=== PATIENT | female | born 1980 | race American Indian/Alaskan Native ===

== ENCOUNTER 2017-02-07 17:11 | Observation (INO) | payer OTHER ==
[2017-02-07 17:11] VITALS: BMI 30.4
[2017-02-07 17:27] VITALS: BP 120/68; PULSE 62; RESP 16; TEMP 98.2; O2SAT 98
[2017-02-07] MEDS ORDERED: Lactated Ringer's 1,000 ML IV STA (18:14)
[2017-02-07 18:52] LABS: BASO # 0.1 K/uL (0.0-0.2); BASO % 0.5 % (0.0-2.0); EOS # 0.3 K/uL (0.0-0.7); EOS % 2.5 % (0.0-4.0); HEMATOCRIT 41.8 % (34.0-47.0); LYMPH # 2.1 K/uL (1.0-4.3); LYMPH % 17.3 % (20.0-40.0); MEAN CELL VOLUME 91.2 fl (81.0-99.0); MEAN CORPUSCULAR HEMOGLOBIN 29.6 pg (27.0-31.0); MEAN CORPUSCULAR HGB CONC 32.4 g/dL (33.0-37.0); MEAN PLATELET VOLUME 9.9 fl (7.2-11.7); MONO # 0.6 K/uL (0.0-0.8); MONO % 4.8 % (0.0-10.0); NEUT % 74.9 % (50.0-75.0); NRBC % 0.1 % (0.0-0.0); RED CELL DISTRIBUTION WIDTH 13.1 % (11.5-14.5); WHITE BLOOD COUNT 12.1 K/uL (4.8-10.8)
[2017-02-07 19:04] LABS: ALB/GLOB RATIO 1.1 (1.0-2.1); ALKALINE PHOSPHATASE 78 U/L (38-126); ALT/SGPT 28 U/L (9-52); AST/SGOT 27 U/L (14-36); BLOOD UREA NITROGEN 11 mg/dl (7-17); CALCIUM 9.8 mg/dL (8.4-10.2); CARBON DIOXIDE 26 mmol/L (22-30); CHLORIDE 103 mmol/L (98-107); GFR AFRICAN-AMERICAN > 60; GLUCOSE,RANDOM 94 mg/dL (65-105); LIPASE 130 U/L (23-300); PHOSPHOROUS 3.8 mg/dl (2.5-4.5); POTASSIUM 4.2 MMOL/L (3.6-5.0); SODIUM 142 mmol/l (132-148); TOTAL PROTEIN 8.8 G/DL (6.3-8.2)
--- NOTE | 2017-02-07 19:22 | ED PDOC ---
HPI: Abdomen Time Seen by Provider: 02/07/17 17:35 Chief Complaint (Nursing): Abdominal Pain Chief Complaint (Provider): Abdominal Pain History Per: Patient History/Exam Limitations: no limitations Onset/Duration Of Symptoms: Days (x2) Current Symptoms Are (Timing): Still Present Quality Of Discomfort: Cramping Associated Symptoms: Chills, Vomiting, Loss Of Appetite. denies: Urinary Symptoms Additional Complaint(s): 17:35 Celina Gutierrez is a 36 year old female that presents to the ED with a chief complaint of diffuse epigastric, cramping pain and vomiting that patient states began two days ago, on Tuesday, at 2 AM in the morning. Her associated symptoms include two episodes of nonbilious, nonbloody vomiting, decreased appetite, chills, and decreased PO intake. Patient denies experiencing any diarrhea, fever, or urinary symptoms. Patient believes that her symptoms began on Tuesday night after she "ate a bad egg." She also reports that yesterday, her symptoms resolved on their own and she ate normally, but that as of today all of her symptoms returned. Patient has yet to take any medication for her pain. PMD: Halley [place] Past Medical History Reviewed: Historical Data, Nursing Documentation, Vital Signs Vital Signs: Last Vital Signs Temp 98.2 F 02/07/17 17:25 Pulse 62 02/07/17 17:25 Resp 16 02/07/17 17:25 BP 120/68 02/07/17 17:25 Pulse Ox 98 02/07/17 22:30 - Medical History PMH: No Chronic Diseases - Surgical History Surgical History: No Surg Hx - Family History Family History: States: Unknown Family Hx - Social History Current smoker - smoking cessation education provided: No - Home Medications Home Medications: Ambulatory Orders Medication Instructions Recorded Atropine/Diphenoxylate [Lonox 2 tab PO QID PRN #30 tab 02/07/17 0.025 MG-2.5 MG] Ciprofloxacin [Cipro] 1 tab PO BID #14 tab 02/07/17 Saccharomyces Boulardi [Florastor] 500 mg PO BID #28 cap 02/07/17 - Allergies Allergies/Adverse Reactions: Allergies Allergy/AdvReac Type Severity Reaction Status Date / Time No Known Allergies Allergy Verified 02/07/17 17:25 Review of Systems Constitutional: Positive for: Chills, Other (decreased appetite, decreased PO intake). Negative for: Fever Gastrointestinal: Positive for: Vomiting (x2 episodes on nonbilious nonbloody), Abdominal Pain (epigastric). Negative for: Diarrhea Genitourinary Female: Negative for: Dysuria, Frequency, Incontinence, Hematuria Physical Exam - Reviewed Nursing Documentation Reviewed: Yes Vital Signs Reviewed: Yes - Physical Exam Appears: Positive for: Non-toxic, In Acute Distress (in moderate painful distress) Head Exam: Positive for: ATRAUMATIC, NORMOCEPHALIC Skin: Positive for: Normal Color, Warm, Dry ENT: Positive for: Pharynx Is (clear), Other (tacky mucous membranes) Cardiovascular/Chest: Positive for: Regular Rate, Rhythm. Negative for: Murmur Respiratory: Positive for: Normal Breath Sounds. Negative for: Wheezing Gastrointestinal/Abdominal: Positive for: Soft, Tenderness (diffusely tender, especially in epigastric area). Negative for: Mass, Guarding, Rebound, Other ( negative Clarke's and McBurney's point tenderness) Neurologic/Psych: Positive for: Alert, Oriented - Laboratory Results Result Diagrams: 02/07/17 18:45 02/07/17 18:45 - ECG O2 Sat by Pulse Oximetry: 98 (RA) Pulse Ox Interpretation: Normal Medical Decision Making Medical Decision Makin:53 Initial Impression: Abdominal Pain and Vomiting, ddx include: Pancreatitis vs. Obstruction vs. Gastroenteritis vs. Gastritis Initial Plan: * CT A/P with IV contrast * PTT * PT * Urine dip * Urine preg * Pepcid 40 mg IV * Lactated Ringer's 1000 mL IV at 1000 mLs/hr * Morphine 2 mg IV * Zofran 8 mg IV 18:36 Patient is to be placed in ED Obs secondary to extensive ED workup. Labs demonstrate mild leukocytosis. No emergent lab abnormalities. EXAM: CT Abdomen and Pelvis With Intravenous Contrast CLINICAL HISTORY: 36 years old, female; Pain; Abdominal pain; Generalized; Prior surgery; Surgery date: 6+ months; Surgery type: Ectopic preg. 2007. Hernia surgery as a baby; Additional info: Abd pain vomiting TECHNIQUE: Axial computed tomography images of the abdomen and pelvis with intravenous contrast. This CT exam was performed using one or more of the following dose reduction techniques: automated exposure control, adjustment of the mA and/or kV according to patient size, and/or use of iterative reconstruction technique. Coronal and sagittal reformatted images were created and reviewed. CONTRAST: 95 mL of [id number] administered intravenously. COMPARISON: No relevant prior studies available. FINDINGS: Lower thorax: No acute findings. ABDOMEN: Liver: Hepatomegaly. Tiny low-attenuation focus in the dome of the right hepatic lobe, too small to characterize. Gallbladder and bile ducts: Unremarkable. No calcified stones. No ductal dilation. Pancreas: Unremarkable. No mass. No ductal dilation. Spleen: Unremarkable. No splenomegaly. Adrenals: Unremarkable. No mass. Kidneys and ureters: Unremarkable. No solid mass. No hydronephrosis. Stomach and bowel: Unremarkable. No obstruction. No mucosal thickening. Appendix: Normal appendix. PELVIS: Bladder: Unremarkable. No mass. Reproductive: 2.3 cm right ovarian follicle. Probable small fibroids in the posterior uterus. Nabothian cyst in the cervix. ABDOMEN and PELVIS: Intraperitoneal space: Small amount of free fluid in the right lower quadrant which is likely physiologic. No free air. Bones/joints: No acute fracture. No dislocation. Soft tissues: Small low hernia containing fat. Vasculature: Unremarkable. No abdominal aortic aneurysm. Lymph nodes: Unremarkable. No enlarged lymph nodes. IMPRESSION: No acute findings. Thank you for allowing us to participate in the care of your patient. Dictated and Authenticated by: Kurt Venegas MD 02/07/2017 8:56 PM Eastern Time ([place] & [place]) 9p Pt feels better. Stable for dc. DW pt findings and plan of care. Rx for infectious diarrhea and advised f/u pmd/gi. Scribe Attestation: Documented by Leandra Hernandez, acting as a scribe for Kita Alexandra MD.. Provider Scribe Attestation: All medical record entries made by the Scribe were at my direction and personally dictated by me. I have reviewed the chart and agree that the record accurately reflects my personal performance of the history, physical exam, medical decision making, and the department course for this patient. I have also personally directed, reviewed, and agree with the discharge instructions and disposition. ED OBSERVATION Date of observation admission: 02/07/17 Time of observation admission: 18:36 - Observation admission statement Patient is being placed in observation because:: 18:36 Patient is to be placed in ED Obs secondary to extensive ED workup. Disposition - Clinical Impression Clinical Impression: Abdominal pain, Diarrhea Counseled Patient/Family Regarding: Studies Performed, Diagnosis, Need For Followup, Smoking Cessation - Disposition Disposition: Routine/Home Disposition Time: 18:35 Condition: STABLE
[2017-02-07] MEDS ORDERED: Iohexol 300 100 ML IJ ONE (20:18)
[2017-02-07] MEDS ORDERED: Sodium Chloride 0.9% 50 ML IV ONE (20:18)
--- NOTE | 2017-02-08 10:59 | CT ---
PROCEDURE: CT Abdomen and Pelvis with contrast HISTORY: abd pain vomiting COMPARISON: None. TECHNIQUE: Axial and reformatted coronal and sagittal CT images of the abdomen and pelvis were obtained after IV contrast administration. Contrast dose: 96 mL of Omnipaque 300 Radiation dose: Total exam DLP = 735.2 mGy-cm. This CT exam was performed using one or more of the following dose reduction techniques: Automated exposure control, adjustment of the mA and/or kV according to patient size, and/or use of iterative reconstruction technique. FINDINGS: LOWER THORAX: Unremarkable. LIVER: Unremarkable. No gross lesion or ductal dilatation. GALLBLADDER AND BILE DUCTS: Unremarkable. PANCREAS: Unremarkable. No gross lesion or ductal dilatation. SPLEEN: Unremarkable. ADRENALS: Unremarkable. No mass. KIDNEYS AND URETERS: Unremarkable. No hydronephrosis. No solid mass. VASCULATURE: Unremarkable. No aortic aneurysm. BOWEL: Unremarkable. No obstruction. No gross mural thickening. APPENDIX: No definite radiographic evidence of appendicitis. PERITONEUM: Unremarkable. No free fluid. No free air. LYMPH NODES: Unremarkable. No enlarged lymph nodes. BLADDER: Unremarkable. REPRODUCTIVE: There is 2.6 centimeter cystic lesions at the right adnexa. There is adjacent trace of fluid and mild fat stranding at the right upper pelvis may be due to recent right ovarian cyst rupture. The uterus is heterogeneous mildly enlarged likely contains fibroids. BONES: No acute fracture. OTHER FINDINGS: None. IMPRESSION: No CT evidence of cholecystitis pancreatitis or appendicitis. 2.6 centimeters cystic lesion at the right adnexa. Adjacent trace fluid and fat stranding seen in the right upper pelvis may be due to recent rupture of ovarian cyst. Heterogeneous prominent size uterus contains fibroids. If clinically warranted further assessment by ultrasound of the pelvis may be obtained. Preliminary report was submitted by [facility].
== END 2017-02-07 22:41 | disposition home or self-care (01) ==
LOC: H.ER 17:11 → H.EROBSV 18:36
PROVIDERS: ADMIT Emergency Medicine; ATTEND Emergency Medicine
DX: R10.13 Epigastric pain (principal); R19.7 Diarrhea, unspecified

== ENCOUNTER 2017-02-09 21:28 | Emergency (ER) | payer OTHER ==
[2017-02-09 21:28] VITALS: BMI 30.4
[2017-02-09 21:34] VITALS: BP 137/71; PULSE 65; RESP 17; TEMP 98.4; O2SAT 100
[2017-02-09] MEDS ORDERED: Sodium Chloride 0.9% 1,000 ML IV STA (22:00)
--- NOTE | 2017-02-09 22:21 | ED PDOC ---
HPI: Abdomen Time Seen by Provider: 02/09/17 21:34 Chief Complaint (Nursing): Abdominal Pain Chief Complaint (Provider): abdominal pain History Per: Patient, Family History/Exam Limitations: no limitations Onset/Duration Of Symptoms: Days, Waxing/Waning Current Symptoms Are (Timing): Still Present Location Of Pain/Discomfort: Epigastric Additional History Per: Patient Additional Complaint(s): 36 y/o female presents for eval of upper abdominal pain x 1 day. As per , patient seen in ED at onset, had labs, CT and discharged with rx Cipro. Patient states pain improving until today, when became intense. Associated nausea. Denies fever, vomiting, chest pain, shortness of breath, palpitations, changes in bowel movements, dysuria, hematuria. Past Medical History Reviewed: Historical Data, Nursing Documentation, Vital Signs Vital Signs: Last Vital Signs Temp 98.4 F 02/09/17 21:32 Pulse 65 02/09/17 21:32 Resp 17 02/09/17 21:32 BP 137/71 02/09/17 21:32 Pulse Ox 100 02/10/17 02:11 - Medical History PMH: No Chronic Diseases - Surgical History Surgical History: No Surg Hx - Family History Family History: States: Unknown Family Hx Other Family History: ectopic sx - Home Medications Home Medications: Ambulatory Orders Medication Instructions Recorded Atropine/Diphenoxylate [Lonox 2 tab PO QID PRN #30 tab 02/07/17 0.025 MG-2.5 MG] Ciprofloxacin [Cipro] 1 tab PO BID #14 tab 02/07/17 Saccharomyces Boulardi [Florastor] 500 mg PO BID #28 cap 02/07/17 Famotidine [Pepcid] 20 mg PO BID #20 tab 02/10/17 Ondansetron ODT [Zofran ODT] 4 mg PO Q8 PRN #10 odt 02/10/17 - Allergies Allergies/Adverse Reactions: Allergies Allergy/AdvReac Type Severity Reaction Status Date / Time No Known Allergies Allergy Verified 02/09/17 21:34 Review of Systems ROS Statement: Except As Marked, All Systems Reviewed And Found Negative Gastrointestinal: Positive for: Nausea, Abdominal Pain Physical Exam - Reviewed Nursing Documentation Reviewed: Yes Vital Signs Reviewed: Yes - Physical Exam Appears: Positive for: Well, Non-toxic, No Acute Distress Head Exam: Positive for: ATRAUMATIC, NORMAL INSPECTION, NORMOCEPHALIC Skin: Positive for: Normal Color Eye Exam: Positive for: Normal appearance ENT: Positive for: Normal ENT Inspection Cardiovascular/Chest: Positive for: Regular Rate, Rhythm Respiratory: Positive for: Normal Breath Sounds Gastrointestinal/Abdominal: Positive for: Bowel Sounds, Soft, Tenderness ( epigastric, suprapubic) Back: Positive for: Normal Inspection Extremity: Positive for: Normal ROM Neurologic/Psych: Positive for: Alert, Oriented - Laboratory Results Result Diagrams: 02/09/17 22:20 02/09/17 22:20 - ECG O2 Sat by Pulse Oximetry: 100 - Progress ED Course And Treament: labs, u/s, IV fluids, IV pepcid, IV zofran, IV toradol CT reviewed from last visit; showed possible ruptured cyst with free fluid, fibroids. Case discussed with ED attending Dr. Guthrie; will order TV u/s for further eval of cyst and RUQ u/s for further eval of gallbladder EXAM: US Pelvis Complete, Transabdominal CLINICAL HISTORY: 36 years old, female; Pain; Abdominal pain; Lower abdomen; LMP 02/07/17 TECHNIQUE: Real-time transabdominal pelvic ultrasound (complete) with image documentation. EXAM DATE/TIME: 02/09/2017 10:07 PM COMPARISON: CT - ABD PELVIS IV CONTRA 02/07/2017 8:30:35 PM FINDINGS: Uterus: Uterus is anteverted. Uterus measures approximately 10 x 4 x 5 cm. Endometrium measures approximately 4 mm in width. There is a 2.6 x 1.6 x 2.6 cm posterior lower uterine segment fibroid. There is a nabothian cyst in the cervix. Right ovary: Right ovary measures approximately 2.9 x 2 x 2.5 cm.There is expected blood flow on Doppler imaging Left ovary: Left ovary measures approximately 2.5 x 1.5 x 2 cm. There is expected blood flow on Doppler imaging Cul-de-sac: There is no free fluid. IMPRESSION: Small uterine fibroid; no ovarian torsion Thank you for allowing us to participate in the care of your patient. EXAM: US Abdomen Limited, Right Upper Quadrant CLINICAL HISTORY: 36 years old, female; Pain; Abdominal pain; Epigastric TECHNIQUE: Real-time ultrasound of the right upper quadrant with image documentation. EXAM DATE/TIME: 02/09/2017 10:07 PM COMPARISON: CT - ABD PELVIS IV CONTRA 02/07/2017 8:30:35 PM FINDINGS: Liver: Liver is unremarkable. There is hepatopedal flow in the main portal vein. Gallbladder: Gallbladder is distended with no stones, sludge or wall thickening. Common bile duct: Common bile duct measures 4.4 mm in diameter. Pancreas: Pancreas is partially obscured by bowel gas. Visualized portion of the pancreas is unremarkable. Right kidney: Right kidney is unremarkable. Aorta: Visualized portions of the aorta and inferior vena cava are unremarkable. IMPRESSION: No gallstones or ductal dilatation; slightly limited evaluation of the pancreas due to bowel gas Patient was not tender over the gallbladder On re-eval, patient states she is feeling better. Tolerated PO. Patient educated on findings, discharged with rx zofran, pepcid. ADvised follow up GI. REturn to ED for worsening/concerning symptoms. Disposition - Clinical Impression Clinical Impression: Abdominal pain - Patient ED Disposition Is Patient to be Admitted: No Counseled Patient/Family Regarding: Studies Performed, Diagnosis, Need For Followup, Rx Given - Disposition Referrals: Stephanie MOTTA,MD [place] [Medical Doctor] - Disposition: Routine/Home Disposition Time: 01:56 Condition: IMPROVED Prescriptions: Famotidine [Pepcid] 20 mg PO BID #20 tab Ondansetron ODT [Zofran ODT] 4 mg PO Q8 PRN #10 odt PRN Reason: Nausea/Vomiting Instructions: Abdominal Pain (ED)
[2017-02-09 22:29] LABS: BASO # 0.1 K/uL (0.0-0.2); BASO % 0.6 % (0.0-2.0); EOS # 0.2 K/uL (0.0-0.7); EOS % 1.5 % (0.0-4.0); HEMATOCRIT 40.6 % (34.0-47.0); LYMPH # 1.5 K/uL (1.0-4.3); LYMPH % 12.2 % (20.0-40.0); MEAN CELL VOLUME 90.5 fl (81.0-99.0); MEAN CORPUSCULAR HEMOGLOBIN 29.6 pg (27.0-31.0); MEAN CORPUSCULAR HGB CONC 32.7 g/dL (33.0-37.0); MEAN PLATELET VOLUME 9.8 fl (7.2-11.7); MONO # 0.5 K/uL (0.0-0.8); MONO % 4.5 % (0.0-10.0); NEUT % 81.2 % (50.0-75.0); NRBC % 0.1 % (0.0-0.0); WHITE BLOOD COUNT 12.3 K/uL (4.8-10.8)
[2017-02-09 22:36] LABS: ALB/GLOB RATIO 1.1 (1.0-2.1); ALKALINE PHOSPHATASE 92 U/L (38-126); ALT/SGPT 30 U/L (9-52); AST/SGOT 22 U/L (14-36); BILIRUBIN,TOTAL 0.6 mg/dl (0.2-1.3); BLOOD UREA NITROGEN 15 mg/dl (7-17); CALCIUM 9.7 mg/dL (8.4-10.2); CARBON DIOXIDE 24 mmol/L (22-30); CHLORIDE 102 mmol/L (98-107); GFR AFRICAN-AMERICAN > 60; GLUCOSE,RANDOM 103 mg/dL (65-105); LIPASE 142 U/L (23-300); SODIUM 133 mmol/l (132-148); TOTAL PROTEIN 7.8 G/DL (6.3-8.2)
--- NOTE | 2017-02-09 23:45 | US ---
EXAM: US Abdomen Limited, Right Upper Quadrant CLINICAL HISTORY: 36 years old, female; Pain; Abdominal pain; Epigastric TECHNIQUE: Real-time ultrasound of the right upper quadrant with image documentation. EXAM DATE/TIME: 02/09/2017 10:07 PM COMPARISON: CT - ABD PELVIS IV CONTRA 02/07/2017 8:30:35 PM FINDINGS: Liver: Liver is unremarkable. There is hepatopedal flow in the main portal vein. Gallbladder: Gallbladder is distended with no stones, sludge or wall thickening. Common bile duct: Common bile duct measures 4.4 mm in diameter. Pancreas: Pancreas is partially obscured by bowel gas. Visualized portion of the pancreas is unremarkable. Right kidney: Right kidney is unremarkable. Aorta: Visualized portions of the aorta and inferior vena cava are unremarkable. IMPRESSION: No gallstones or ductal dilatation; slightly limited evaluation of the pancreas due to bowel gas Patient was not tender over the gallbladder
--- NOTE | 2017-02-10 00:04 | US ---
EXAM: US Pelvis Complete, Transabdominal CLINICAL HISTORY: 36 years old, female; Pain; Abdominal pain; Lower abdomen; LMP 02/07/17 TECHNIQUE: Real-time transabdominal pelvic ultrasound (complete) with image documentation. EXAM DATE/TIME: 02/09/2017 10:07 PM COMPARISON: CT - ABD PELVIS IV CONTRA 02/07/2017 8:30:35 PM FINDINGS: Uterus: Uterus is anteverted. Uterus measures approximately 10 x 4 x 5 cm. Endometrium measures approximately 4 mm in width. There is a 2.6 x 1.6 x 2.6 cm posterior lower uterine segment fibroid. There is a nabothian cyst in the cervix. Right ovary: Right ovary measures approximately 2.9 x 2 x 2.5 cm.There is expected blood flow on Doppler imaging Left ovary: Left ovary measures approximately 2.5 x 1.5 x 2 cm. There is expected blood flow on Doppler imaging Cul-de-sac: There is no free fluid. IMPRESSION: Small uterine fibroid; no ovarian torsion
[2017-02-10] MEDS ORDERED: Simethicone 40 mg/0.6 ml Liquid (30 ml) PO STA (01:14)
== END 2017-02-10 02:30 | disposition home or self-care (01) ==
LOC: H.ER 21:28
DX: R10.9 Unspecified abdominal pain (principal)

== ENCOUNTER 2018-06-14 18:25 | Emergency (ER) | payer OTHER ==
[2018-06-14 18:25] VITALS: BMI 30.4
[2018-06-14 18:35] VITALS: O2SAT 100
--- NOTE | 2018-06-14 19:48 | ED PDOC ---
HPI: Chest Pain Time Seen by Provider: 06/14/18 19:05 Chief Complaint (Nursing): Chest Pain Chief Complaint (Provider): Chest Discomfort History Per: Patient History/Exam Limitations: no limitations Onset/Duration Of Symptoms: Intermittent Episodes (x1 week) Current Symptoms Are (Timing): Intermittent Episodes (last one prior to arrival) Additional Complaint(s): 38 year old female presents to the ED for evaluation of intermittent episodes of mid-sternal chest discomfort described as heaviness for the past week, her last episode just prior to arrival. Patient notes that the discomfort began after she worked out last week, but did not notice any episodes over the weekend , until the one today. She states the episodes last briefly and resolve spontaneously and has not taken any medications prior to arrival. While she denies a personal hx of heart disease, she notes her grandfather suffered from a heart attack. Patient has no symptoms at present. Otherwise, (-) nausea, (-) vomiting, (-) abdominal pain, (-) fever, (-) chills, (-) SOB, (-) cough (-) headache (-) dizziness (-) visual changes (-) numbness/weakness. Patient denies any prolonged immobility and states she works out 4-5 times/week. Patient denies experiencing symptoms during her workouts. LMP: currently PMD: Sarmad Bradshaw Past Medical History Reviewed: Historical Data, Nursing Documentation, Vital Signs Vital Signs: Last Vital Signs Temp 97.6 F 06/14/18 20:43 Pulse 62 06/14/18 20:43 Resp 17 06/14/18 20:43 BP 112/55 L 06/14/18 20:43 Pulse Ox 100 06/14/18 20:56 - Medical History PMH: No Chronic Diseases - Surgical History Surgical History: No Surg Hx - Family History Family History: States: [place] (grandfather) - Social History Current smoker - smoking cessation education provided: No Alcohol: None Drugs: Denies - Home Medications Home Medications: Ambulatory Orders Medication Instructions Recorded Atropine/Diphenoxylate [Lonox 2 tab PO QID PRN #30 tab 02/07/17 0.025 MG-2.5 MG] Ciprofloxacin [Cipro] 1 tab PO BID #14 tab 02/07/17 Saccharomyces Boulardi [Florastor] 500 mg PO BID #28 cap 02/07/17 Famotidine [Pepcid] 20 mg PO BID #20 tab 02/10/17 Ondansetron ODT [Zofran ODT] 4 mg PO Q8 PRN #10 odt 02/10/17 Non-Formulary 1 ea .ROUTE Q6 #1 ea 06/14/18 Non-Formulary 1 ea .ROUTE Q6 #1 ea 06/14/18 - Allergies Allergies/Adverse Reactions: Allergies Allergy/AdvReac Type Severity Reaction Status Date / Time No Known Allergies Allergy Verified 06/14/18 18:33 Review of Systems ROS Statement: Except As Marked, All Systems Reviewed And Found Negative Constitutional: Negative for: Fever, Chills Cardiovascular: Positive for: Chest Pain (mid-sternal discomfort described as heaviness) Gastrointestinal: Negative for: Nausea, Vomiting, Abdominal Pain Physical Exam - Reviewed Nursing Documentation Reviewed: Yes Vital Signs Reviewed: Yes - Physical Exam Comments: GENERAL APPEARANCE: Patient is awake, alert, oriented x 3, in no acute distress , resting comfortably. Speaking in full sentences. SKIN: Warm, dry; (-) cyanosis. EYES: (-) conjunctival pallor. ENMT: Mucous membranes moist. Airway patent, (-) stridor. NECK: Supple, FROM (-) tenderness, (-) stiffness, (-) lymphadenopathy, (-) JVD. CHEST AND RESPIRATORY: (-) rash, (-) chest wall tenderness (-) rales, (-) rhonchi, (-) wheezes, (-) rub; breath sounds equal bilaterally. Respirations even and nonlabored. HEART AND CARDIOVASCULAR: (-) irregularity ABDOMEN AND GI: Soft; (-) distention, (-) tenderness, (-) guarding, (-) palpable pulsatile mass. EXTREMITIES: (-) deformity; (-) edema, (-) calf tenderness (-) palpable cord ( +) distal pulses. NEURO AND PSYCH: Mental status as above. Cranial nerves grossly intact; strength symmetric. Gait: steady. Speech: clear. (-) aphasia. Cerebellar tests intact. - Laboratory Results Urine POC: Negative - ECG O2 Sat by Pulse Oximetry: 100 (RA) Pulse Ox Interpretation: Normal Medical Decision Making Medical Decision Making: Time: 1909 Initial Impression: chest pain Initial Plan: --EKG --CXR --Re-evaluation EKG: SB @ 57bpm, (-) ST elevation, QTc 420 1954 CXR: No acute disease as read by Gita CARTAGENA. Patient notified official XR reading will be available within 24 hours and that she will be notified of any discrepancies via phone. Repeat HR: 70 On re-evaluation, patient reports no symptoms at present. No episodes of chest pain throughout ED course. On exam, patient remains AAOx3, in no acute distress. Lungs CTA, cardiac RRR, abdomen soft, nontender, repeat neuro exam shows no focal findings. Vitals stable. Lab/Diagnostic results d/w with the patient in great detail. Diagnosis of nonspecific chest pain d/w patient. Based on history, exam, and diagnostic results, plan will be for outpatient follow up. Patient instructed to follow up with PMD / referral provided / the clinic in 1- 2 days without fail. Return to the emergency room at any time for any new or worsening symptoms. Patient states she agrees with and understandings discharge instructions. States that she agrees with the plan and disposition. Verbalized and repeated discharge instructions and plan. I have given the patient opportunity to ask any additional questions. Scribe Attestation: Documented by Aby Samson, acting as a scribe for Kim Pelayo PA-C. Provider Scribe Attestation: All medical record entries made by the Scribe were at my direction and personally dictated by me. I have reviewed the chart and agree that the record accurately reflects my personal performance of the history, physical exam, medical decision making, and the department course for this patient. I have also personally directed, reviewed, and agree with the discharge instructions and disposition. Disposition - Clinical Impression Clinical Impression: Chest pain - Patient ED Disposition Is Patient to be Admitted: No Counseled Patient/Family Regarding: Studies Performed, Diagnosis, Need For Followup, Rx Given - Disposition Referrals: Sarmad Bradshaw MD [Staff Provider] - Disposition: Routine/Home Disposition Time: 19:59 Condition: STABLE Additional Instructions: The emergency medical care you received today was directed towards your acute symptoms. If you were prescribed medication, please fill it at the pharmacy and take it as directed. It may take several days for your symptoms to resolve. Return to emergency department if your symptoms worsen, do not improve, or if you have any other problems. Please contact your doctor / referred provider / clinic in 2 days for further evaluation. The treatement in the emergency department cannot replace ongoing medical care by a primary doctor outside of the emergency department. Prescriptions: Non-Formulary 1 ea .ROUTE Q6 #1 ea Non-Formulary 1 ea .ROUTE Q6 #1 ea Instructions: Chest Pain, Chest Pain That Is Not Caused by the Heart (DC) Forms: Xianguo (Cameroonian) Print Language: BELIZEAN - POA Present On Arrival: None
[2018-06-14 20:44] VITALS: BP 112/55; PULSE 62; RESP 17; TEMP 97.6
--- NOTE | 2018-06-15 07:39 | CARD ---
APPROVED REPORT Date of service: 06/14/2018 EKG Measurement Heart [id number] <Conclusion> Sinus bradycardia Possible Left atrial enlargement Low voltage QRS Borderline ECG
--- NOTE | 2018-06-15 09:07 | RAD ---
Date of service: 06/14/2018 HISTORY: chest pain COMPARISON: No prior. TECHNIQUE: Chest PA and lateral FINDINGS: LUNGS: No active pulmonary disease. PLEURA: No significant pleural effusion identified. No pneumothorax apparent. CARDIOVASCULAR: Normal. OSSEOUS STRUCTURES: No significant abnormalities. VISUALIZED UPPER ABDOMEN: Normal. OTHER FINDINGS: None. IMPRESSION: No acute cardiopulmonary disease appreciated.
== END 2018-06-14 20:46 | disposition home or self-care (01) ==
LOC: H.ER 18:25
DX: R07.89 Other chest pain (principal)